=== PATIENT | male | born 2000 | race Asian ===

== ENCOUNTER 2019-08-20 08:58 | Inpatient (IN) | payer OTHER ==
[~2019-08-20] VITALS: Ht 170.2 cm; Wt 62.9 kg
[2019-08-20 09:49] LABS: HEMATOCRIT 45.9 % (42.0-52.0); HEMOGLOBIN 15.2 g/dl (13.5-17.5); MEAN CORPUSCULAR HEMOGLOBIN 30.2 pg (27.0-33.0); MEAN CORPUSCULAR HGB CONC 33.1 g/dl (32.0-36.5); MEAN CORPUSCULAR VOLUME 91.3 fl (80.0-96.0); PLATELET COUNT, AUTOMATED 240 10^3/uL (150-450); RED BLOOD COUNT 5.03 10^6/uL (4.30-6.10); WHITE BLOOD COUNT 5.7 10^3/uL (4.0-10.0)
[2019-08-20 10:10] LABS: AMPHETAMINES LEVEL URINE NEGATIVE (NEGATIVE); BARBITURATES URINE NEGATIVE (NEGATIVE); BENZODIAZEPINES URINE NEGATIVE (NEGATIVE); CANNABINOIDS URINE NEGATIVE (NEGATIVE); COCAINE METABOLITE URINE NEGATIVE (NEGATIVE); METHADONE URINE NEGATIVE (NEGATIVE); OPIATES URINE NEGATIVE (NEGATIVE); PHENCYCLIDINE URINE NEGATIVE (NEGATIVE)
[2019-08-20 10:22] LABS: ALBUMIN 3.9 GM/DL (3.2-5.2); ALT/SGPT 31 U/L (12-78); BILIRUBIN,DIRECT 0.1 MG/DL (0.0-0.2); BILIRUBIN,TOTAL 0.2 MG/DL (0.2-1.0); BLOOD UREA NITROGEN 13 MG/DL (7-18); CALCIUM LEVEL 8.4 MG/DL (8.5-10.1); CARBON DIOXIDE LEVEL 26 MEQ/L (21-32); CHLORIDE LEVEL 110 MEQ/L (98-107); CREATININE FOR GFR 0.93 MG/DL (0.70-1.30); ETHYL ALCOHOL (ETHANOL) 0.125 % (0.000-0.010); GLUCOSE, FASTING 97 MG/DL (70-100); POTASSIUM SERUM 4.4 MEQ/L (3.5-5.1); SALICYLATE LEVEL < 1.7 MG/DL (5.0-30.0); SODIUM LEVEL 144 MEQ/L (136-145); THYROID STIMULATING HORMONE 0.598 uIU/ML (0.463-3.98); TOTAL PROTEIN 7.5 GM/DL (6.4-8.2)
[2019-08-20 10:23] LABS: ACETAMINOPHEN LEVEL < 2.0 UG/ML (10.0-30.0)
[2019-08-20] MEDS ORDERED: MAALOX 30 ML SUSP *UDC PO PRN (16:45)
[2019-08-20] MEDS ORDERED: LORazepam 2 MG TAB PO PRN (16:45)
[2019-08-20] MEDS ORDERED: IBUPROFEN 400 MG TAB PO PRN (16:45)
[2019-08-20] MEDS ORDERED: NICOTINE 7 MG/24 HR TRANSDERMAL TD PRN (16:45)
[2019-08-20] MEDS ORDERED: MOM 30ML SUSPENSION UDC PO PRN (16:45)
[2019-08-20 18:22] VITALS: BP 140/97
[2019-08-20] MEDS: THIAMINE 100 MG TAB PO SCH (18:55)
[2019-08-20] MEDS: SERTRALINE HCL 50 MG TAB PO SCH (21:00)
[2019-08-20] MEDS: traZODone 50 MG TAB PO PRN (21:07)
[2019-08-20 21:30] VITALS: BP 140/97
[2019-08-21 06:00] VITALS: BP 128/66
[2019-08-21 07:07] VITALS: BP 128/66
[2019-08-21] MEDS ORDERED: MULTIVITAMINS/MINERALS THERAP 1 TAB PO SCH (09:00)
[2019-08-21] MEDS ORDERED: FOLIC ACID 1 MG TAB PO SCH (09:00)
[2019-08-21] MEDS: THIAMINE 100 MG TAB PO SCH ×2 (09:39→21:03)
--- NOTE | 2019-08-21 09:50 | MHHPEPDOC ---
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 He had done cutting for self soothing. He had shown this to his superior officer when he was brought into the ER and admitted out of an abundance of caution. The patient during his entire stay had denied being suicidal or homicidal ideation and that the cutting was not done to kill himself but simply to cope. The patient was met with or reported that he was not being "appreciative" of the different things that he has. He was reporting that he had made some poor deci sions in the multiple stressors and misses his family. However, he denies any symptoms consistent with clinical depression. He reports that the stressors had come at him all at once. Other than a low mood at times, he denies anything else. Review Of Systems Depression: Denies. Unprovoked depression. Reports symptoms consistent with adjustment disorder. Anxiety: The patient denies any excessive worry associated with physical symptoms. They deny any experience of discreet panic in the past. Sallie: The patient denies any episodes of euphoria/dysphoria associated with decreased need for sleep, hedonism, talkatively or impulsivity lasting longer than 5 days. Psychotic: The patient denies any experiences of auditory or visual hallucinations. They deny any episodes of paranoia or delusional thinking in the past Trauma: The patient denies any traumatic events associated with nightmares or intrusive thoughts. Borderline: The patient screens negative for borderline personality at this junction. Past Psychiatric History The patient reports no history of psychiatric admissions, medication trials or current follow up. Denies any history of suicide attempts. Allergies Please see below. Family Psychiatric History The patient denies/is unaware any history of mental health history including addictions and suicide. 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 Very few supports in the local area. No legal trouble. Subsist on income. Graduated high school. Grew up with parents, with a close relationship, grew up primarily in [place]. Describes he has 2 younger b lucitaers with a close relationship as well. Has only been in the for 5 months, recently has left basic training and has arrived to [place]. Substance Abuse History The patient denies any excessive alcohol use, tobacco or illicit drug use, denies history of substance use treatment. Medical History Patient has no significant past medical history. Mental Status Examination General: Well dressed with good hygiene Speech: Spontaneous and fluid Thought processes: Linear and logical MSK: Smooth and coordinated gait, no signs of tremors or involuntary orofacial movements Thought content: Future orientated Abstract reasoning, and computation: Intact Description of associations: Intact Description of abnormal or psychotic thoughts: Denies any suicidal or homicidal ideation. Denies any auditory or visual hallucinations. Does not appear to be responding to internal stimuli. Does not appear to be endorsing any bizarre or paranoid ideation. Judgment: fair Insight: fair Orientation: Alert and orientated 3 Cognition: Grossly normal Recent and remote memory: Intact Attention span and concentration: Intact Fund of knowledge: Adequate Mood: "okay" Affect: Euthymic with a full range Diagnoses Adjustment disorder, mild. Assessment and Plan Adjustment disorder: Discussed with patient the medication options versus supportive treatment and therapy, patient elects for psychotherapy at this time. The patient will be discharged tomorrow as he does not meet involuntary criteria, denying suicidal and homicidal ideation through his observation and is unlikely to be meeting criteria for extension of an involuntary admission that he is on. He declines voluntary and will be discharged home tomorrow. Disposition Discharged to [facility] tomorrow. Problem List 1. Risk for suicide. 2. Depression. 3. Ineffective coping. Initial Treatment Plan 1. Patient was admitted on a 9.39 legal status. 2. Complete history was obtained. 3. With patients permission, family will be contacted and database will be expanded. 4. Patients medication regimen will be reviewed and changed accordingly. 5. Patient will be provided with protected environment. 6. Patient will be treated with individual, group, and milieu therapies. 7. Patient will receive supportive psych-education. 8. Discharge planning will commence immediately. 9. Outpatient follow-up treatment will be strongly recommended. 10. The initial treatment plan will focus initially on: Estimated Length Of Stay 2 days. Time Spent 70 minutes. Tuesday Vital Signs Vital Signs Date Time Temp Pulse Resp B/P (MAP) Pulse Ox O2 Delivery O2 Flow Rate FiO2 08/21/19 07:07 98.6 89 16 128/66 (86) 08/20/19 18:22 99 Room Air Medications Scheduled PRN Trazodone HCl (Trazodone HCl) 50 Mg Tablet, 50 MG PO QHSP PRN for INSOMNIA Allergies Coded Allergies: No Known Allergies (Unverified , 08/20/19) JOHN PAUL DO Aug 21, 2019 09:50
[2019-08-21] MEDS ORDERED: TRAZ-252 PO (12:29)
--- NOTE | 2019-08-21 14:14 | CR.PDOC ---
General Date of Consultation: Aug 21, 2019 Consultation REASON FOR CONSULTATION/CHIEF COMPLAINT: Admitted to inpatient mental health unit after cutting himself. HISTORY OF PRESENT ILLNESS: 18-year-old male, active , no significant past medical or psychiatric history is admitted to inpatient mental health unit after cutting himself. Patient reports feeling overwhelmed with his current duties in the interfering with his family/social responsibilities. Patient wishes to be at home with his brothers who need his help and his uncle who is passing away from malignancy. Patient denies attempting to commit suicide by cutting himself, reports using that as a way to relieve his tension. He has no medical complaints at this time, denies any shortness of breath, chest pain, nausea, vomiting, abdominal pain, diarrhea or constipation. He denies any suicidal ideation at this time.. 10 point review of system is negative except for above ALLERGIES: Please see below. HOME MEDICATIONS: Please see below. PAST MEDICAL HISTORY: 1. None. PAST SURGICAL HISTORY: 1. None FAMILY HISTORY: Negative for cancer, heart disease in his parents SOCIAL HISTORY: Never smoker. Social alcohol use. Denies drug use PHYSICAL EXAMINATION: VITAL SIGNS: Please see below. GENERAL: No distress HEENT: Normocephalic, atraumatic, moist mucous membranes NECK: Supple CARDIOVASCULAR EXAMINATION: S1, S2, no murmurs RESPIRATORY EXAMINATION: Clear to auscultation, no wheezing ABDOMINAL EXAMINATION: Soft, nontender, nondistended, positive bowel sounds EXTREMITIES: Range of motion intact SKIN: No rash NEUROLOGICAL EXAMINATION: Alert and oriented 3, no focal deficits PSYCHIATRIC EXAMINATION: Calm and cooperative LABORATORY DATA: Please see below. ASSESSMENT/PLAN: 18-year-old male without any significant psychiatric or medical history is admitted to inpatient mental health unit after cutting himself. 1. Self cutting. Management as per primary team Patient has no active medical issues at this time, please reconsult if needed. Vital Signs/I&O Vital Signs Date Time Temp Pulse Resp B/P (MAP) Pulse Ox O2 Delivery O2 Flow Rate FiO2 08/21/19 07:07 98.6 89 16 128/66 (86) 08/20/19 18:22 99 Room Air Allergies Coded Allergies: No Known Allergies (Unverified , 08/20/19) Home Medications Scheduled PRN Trazodone HCl (Trazodone HCl) 50 Mg Tablet, 50 MG PO QHSP PRN for INSOMNIA for 7 Days, #7 MUSA MANCUSO MD Aug 21, 2019 14:14
[2019-08-21 15:47] VITALS: BP 120/69
[2019-08-21 20:33] VITALS: BP 120/69
[2019-08-21] MEDS: SERTRALINE HCL 50 MG TAB PO SCH (21:00)
[2019-08-21] MEDS: traZODone 50 MG TAB PO PRN (21:03)
[2019-08-22 06:53] VITALS: BP 115/70
--- NOTE | 2019-08-22 08:07 | MHDSPDOC ---
[facility] Discharge Summary Discharge Summary DATE OF ADMISSION: Aug 20, 2019 at 16:38 DATE OF DISCHARGE: 08/22/19 Discharge Nathan Duncan MRN: N/A Date of : N/A Date of Service: 08/22/2019 Diagnoses Adjustment disorder, mild. 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 He had done cutting for self soothing. He had shown this to his superior officer when he was brought into the ER and admitted out of an abundance of caution. The patient during his entire stay had denied being suicidal or homicidal ideation and that the cutting was not done to kill himself but simply to cope. The patient was met with or reported that he was not being "appreciative" of the different things that he has. He was reporting that he had made some poor decisions in the multiple stressors and misses his family. However, he denies any symptoms consistent with clinical depression. He reports that the stressors had come at him all at once. Other than a low mood at times, he denies anything else. Consultants Involved Hospitalist/PCP screening Treatment and Progress On The Unit The patient was admitted to the inpatient mental health unit out of an abundance of caution. He had been denying suicidal and homicidal ideations after the reported self-soothing cutting. The patient did well on the unit, was cooperative, engaged, friendly and had requested discharge shortly after his presentation. During his stay, we had discussed medications and the risks and benefits as well as therapies given his particular diagnosis, which the patient elected to try therapy alone. He reported that his stay did give him perspective on how good his situation was. He was discharged in good hiram as he no longer met involuntary criteria and declined further voluntary. 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 After 48 hours of observation reveals no suicidal or homicidal ideation, normal mental status exam, cooperative with discharge planning, a good and fair insight and judgment while on the unit. He declines further voluntary admission and thus cannot be ethically extended on an involuntary admission and is discharged in good hiram. Mental Status Examination General: Well dressed with good hygiene Speech: Spontaneous and fluid Thought processes: Linear and logical MSK: Smooth and coordinated gait, no signs of tremors or involuntary orofacial movements Thought content: Future orientated Abstract reasoning, and computation: Intact Description of associations: Intact Description of abnormal or psychotic thoughts: Denies any suicidal or homicidal ideation. Denies any auditory or visual hallucinations. Does not appear to be responding to internal stimuli. Does not appear to be endorsing any bizarre or paranoid ideation. Judgment: fair Insight: fair Orientation: Alert and orientated 3 Cognition: Grossly normal Recent and remote memory: Intact Attention span and concentration: Intact Fund of knowledge: Adequate Mood: "okay" Affect: Euthymic with a full range Follow Up The social work team worked during the predischarge meeting in order to evaluate for further issues of lethality address them fully before discharge. They worked on safety planning with the patient's family members in order to ensure that the patient will have a safe and effective discharge. Time Spent The amount of time spent in the coordination of care for this patient was approximately 60 minutes. Tuesday Vital Signs/I&Os Vital Signs Date Time Temp Pulse Resp B/P (MAP) Pulse Ox O2 Delivery O2 Flow Rate FiO2 08/22/19 06:53 98.6 63 14 115/70 (85) 08/20/19 18:22 99 Room Air Medications Scheduled PRN Trazodone HCl (Trazodone HCl) 50 Mg Tablet, 50 MG PO QHSP PRN for INSOMNIA for 7 Days, #7 Allergies Coded Allergies: No Known Allergies (Unverified , 08/20/19) JOHN PAUL DO Aug 22, 2019 08:07
== END 2019-08-22 09:25 | disposition home or self-care (01) | DRG 882 ==
LOC: M ED 08:58 → M ED INP 16:38 → M PSY 18:15
PROVIDERS: ADMIT Psychiatry & Neurology Addiction Medicine; ATTEND Psychiatry & Neurology Addiction Medicine
DX: F43.20 Adjustment disorder, unspecified (principal)

== ENCOUNTER 2019-11-10 14:39 | Emergency (ER) | payer OTHER ==
[~2019-11-10] VITALS: Ht 170.2 cm; Wt 69.3 kg
[2019-11-10 14:39] VITALS: BP 133/67
[~2019-11-10 14:39] MED LIST: TRAZ-252 PO
[2019-11-10] MEDS ORDERED: ERYT1OIN26 OD (15:18)
== END 2019-11-10 15:35 | disposition home or self-care (01) ==
LOC: M ED 14:39
DX: H00.015 Hordeolum externum left lower eyelid (principal)